=== PATIENT | male | born 1995 | race Two or more races ===

== ENCOUNTER 2024-11-08 13:22 | Outpatient (AMB) | payer OTHER, SELFPAY ==
--- NOTE | 2024-11-08 13:50 | MHC.PC.OV ---
Vital Signs 11/08/24 13:51 Height 5 ft 9.29 in Weight 141 lb BMI 20.6 BP 90/58 L Blood Pressure Location Lt brachial Position Sitting Pulse 94 Pulse Source Pulse Oximeter Pulse Oximetry (%) 98 Oxygen Delivery Method Room Air Intake Visit Reasons: establish care Human Services Professional Required: Yes Human Services Professional Language: Zambian Accompanied by: Self / Same As Patient Allergies No Known Allergies Allergy (Verified 11/08/24 14:01) Medication List - Last Reconciled 11/08/24 by Annie Spain PA-C tadalafil (Cialis) 5 mg PO DAILY Tobacco use date assessed: 11/08/24 Dental Screening Dental Screen Date: 11/08/24 Did you have a dental visit in the last 12 months?: Yes Did you have a dental problem in the last 6 months where you did not have access to dental care?: No Was dental information given to patient?: Patient has dentist HPI establish care HPI Details 29 year old male coming to the office for the 1st time. Patient presents today with his spouse who translates for the duration of this visit formal interpretation was declined. The patient is a 29-year-old male presenting with erectile dysfunction and urinary retention. He reports initial improvement with 10 mg tadalafil, which was adjusted to 5 mg due to adverse effects. Current concerns follow an online procurement of medication, producing undesirable effects. Symptoms of depression and anxiety were noted, intertwined with family-related stress and significant life changes. Positive depression and anxiety screenings were recorded. The patient experiences back pain potentially linked to past activities and physical strain, not yet addressed with imaging or physical therapy. Noteworthy is his history of bilateral hernia repair, raising concerns about potential complications. [facility] Surgical History H/O inguinal hernia repair Questionnaire PHQ-9 Over the last 2 weeks, how often have you been bothered by any of the following problems? 1. Little interest or pleasure in doing things: not at all 2. Feeling down, depressed, or hopeless: several days 3. Trouble falling or staying asleep, or sleeping too much: several days 4. Feeling tired or having little energy: nearly every day 5. Poor appetite or overeating: not at all 6. Feeling bad about yourself - or that you are a failure or have let yourself or your family down: several days 7. Trouble concentrating on things, such as reading the newspaper or watching television: several days 8. Moving or speaking so slowly that other people could have noticed. Or the opposite - being so fidgety or restless that you have been moving around a lot more than usual: not at all 9. Thoughts that you would be better off or of hurting yourself in some way: not at all Total score: 7 Depression Screening Interpretation: Positive Depression Screening Follow-up: New Medication prescribed Depression Screening Done: Yes 71213 - PHQ-9 Billing: Yes Source: Developed by Drs. Taurus Freeman, Malaika Betancourt, Mark Aguilera and colleagues, with an educational qiana from [employer]. Thrive Questionnaire Date Thrive assessed: 11/08/24 I am a: Patient What is your living situation today?: I have a steady place to live Within the past 12 months, did the food you bought not last and you didn't have the money to get more?: Never true Within the past 12 months, did you worry whether your food would run out before you got money to buy more?: Never true Do you have trouble paying for medicines?: No Do you have trouble getting transportation to medical appointments?: No Do you have trouble paying your heating and electricity bill?: No Do you have trouble taking care of your child, family member or friend?: No Do you have trouble with day-to-day activities such as bathing, preparing meals, shopping, managing finances, etc.?: No Are you currently unemployed and looking for a job?: Yes Are you interested in more education?: Yes Please select the resources that you would like help with: Job search/training and Education Currently or been in a relationship where the following occur: No concerns reported THRIVE Score: 0 AUDIT C Alcohol Use Questionnaire (AUDIT-C) 1. How often do you have a drink containing alcohol?: 2-3 times a week 2. How many drinks containing alcohol do you have on a typical day when you are drinking?: 1 or 2 3. How often do you have six or more drinks on one occasion?: Never Total Score: 3 TATYANA-7 AMB Questionnaire TATYANA-7 Date TATYANA - 7 assessed: 11/08/24 Feeling nervous, anxious, or on edge: 2 = More than half the days Not being able to stop or control worryin = Several days Worrying too much about different things: 1 = Several days Trouble relaxin = Several days Being so restless that it is hard to sit still: 0 = Not at all Becoming easily annoyed or irritable: 1 = Several days Feeling afraid as if something awful might happen: 0 = Not at all Total TATYANA-7 score (0-4 normal; 5-9 mild; 10-14 moderate; 15-21 severe): 6 Source: Developed by Drs. Taurus Freeman, Malaika Betancourt, Mark Aguilera and colleagues, with an educational qiana from [employer]. TATYANA-7 Assessment Billing TATYANA-7 Assessment Tool: TATYANA-7 Assessment 99717 Review of Systems Const Denies body aches, Denies chills, Denies fever(s), Denies headache(s) and Denies poor appetite Eyes Reports no additional complaints ENT Denies dizziness and Denies headache(s) Card Details: Chest pain with anxiety Denies chest pain, Denies lightheadedness and Denies dyspnea Resp Denies cough and Denies dyspnea GI Denies abdominal pain, Denies constipation, Denies diarrhea, Denies nausea and Denies vomiting Reports no additional complaints Musc Reports no additional complaints and Denies abnormal gait Skin/Breast Reports system reviewed and no additional complaints, except as documented Neuro Denies abnormal gait, Denies dizziness and Denies headache(s) Psych Reports no additional complaints Physical exam (Primary Care) BMI result Body Mass Index 20.6 PHQ-9: PHQ-9 Score PHQ-9: Total score 7 11/08/24 13:55 Depression Screening Interpretation: Positive Depression Screening Follow-up: New Medication prescribed Thrive Assessment: Date of Thrive Assessment Date Thrive assessed 11/05/24 11/08/24 13:55 Currently or been in a relationship where the following occur: No concerns reported Const General: cooperative, healthy appearing, comfortable and no acute distress Orientation/consciousness: patient oriented x3 HENMT Head: Yes normocephalic Ears: hearing grossly normal bilaterally General nose exam: Normal external nose present Eyes General: appearance normal, both eyes and all related structures Conjunctivae: conjunctivae normal Neck Neck: Yes full ROM and Yes no lymphadenopathy Resp Effort & Inspection: normal respiratory effort Auscultation: clear to auscultation bilaterally, no crackles, no rales, no rhonchi and no wheezes Cardio Rate: regular rate Rhythm: regular rhythm Skin General skin exam: no rashes or lesions noted Neuro General: patient oriented x3 Gait exam (Neuro): Normal gait present Extrem General: Yes normal to inspection, Yes full ROM and No edema Psych Affect: normal affect Attitude: cooperative Insight: Good insight present (Psych) Judgement: Good judgement present (Psych) Coding Level of Care Code New Pt Level 4 (15971) Diagnoses Post-void dribbling N39.43 Erectile dysfunction N52.9 Low back pain M54.50 Chest pain R07.9 Hypercholesterolemia E78.00 Depression F32.A Anxiety F41.9 Additional Codes TATYANA-7 Assessment Billing - TATYANA-7 Assessment Tool: TATYANA-7 Assessment 53820 ([id number]) PHQ-9 - 36007 - PHQ-9 Billing: Yes ([id number]) Assessment & Plan Assessment & Plan (1) Post-void dribbling: Code(s): N39.43 - Post-void dribbling Category: Medical Plan: Patient was given tadalafil 5 mg which has worked in the past. Refill was sent today and referral placed to Urology. Blood work including PSA and testosterone were ordered (2) Erectile dysfunction: Code(s): N52.9 - Male erectile dysfunction, unspecified Category: Medical Plan: Patient was given tadalafil 5 mg which has worked in the past. Refill was sent today and referral placed to Urology. Blood work including PSA and testosterone were ordered (3) Low back pain: Code(s): M54.50 - Low back pain, unspecified Category: Medical Plan: Patient complaining of chronic low back pain that has been ongoing for several years. Advised to use Tylenol and ibuprofen as needed for pain as well as heat and lidocaine patches. Thoracic and lumbar spine x-ray ordered (4) Chest pain: Code(s): R07.9 - Chest pain, unspecified Category: Medical Plan: Patient complaining of intermittent chest pains associated with anxiety. Denies any dyspnea on exertion or chest pain on exertion. Offered cardiac stress test which was declined today. Plan to start on SSRI continue to monitor symptoms. Reviewed with patient red flag symptoms and when to present for re-evaluation (5) Hypercholesterolemia: Code(s): E78.00 - Pure hypercholesterolemia, unspecified Category: Medical Plan: Previous history of hypercholesterolemia. Ordered for updated blood work. (6) Depression: Code(s): F32.A - Depression, unspecified Category: Medical Plan: Positive PHQ-9 test today. Plan to start on Zoloft and follow up in 2 months. (7) Anxiety: Code(s): F41.9 - Anxiety disorder, unspecified Category: Medical Plan: Positive tatyana 7 today plan to start on Zoloft 25 mg and follow up in 2 months. Plan For the patient's presenting issues of erectile dysfunction and urinary retention, I have continued tadalafil and recommended a urological evaluation. Additionally, sertraline was discussed for management of depression and anxiety, with careful monitoring for potential exacerbation of erectile dysfunction. His back pain, likely secondary to occupational hazards, prompts X-ray evaluation prior to physical therapy. Encouragement of his exercise regimen and advising dietary improvements for cholesterol management are suggested. He does not exhibit symptoms suggestive of cardiac ailment that necessitate immediate intervention. Family support and stress management strategies were recommended given the psychosocial burdens acknowledged during our visit. Patient was informed and verbally consented to the use of an ambient scribe for clinic note documentation during this visit. This note was constructed using voice recognition software. While every effort has been made to ensure accuracy and financial services auditor, still areas may have been included sometimes these areas may affect the content or meeting of the given symptoms. Total time spent caring for the patient today was 30 minutes. This includes time spent before the visit reviewing the chart, time spent during the visit, and time spent after the visit and documentation. Orders: Orders TSH reflex Free T4 Today Z00.00 - Encounter for general adult medical examination without abnormal findings Vitamin B12 and Folate Today Z00.00 - Encounter for general adult medical examination without abnormal findings Vitamin D 25-OH Total Today Z00.00 - Encounter for general adult medical examination without abnormal findings Comprehensive Met. Panel Today Z00.00 - Encounter for general adult medical examination without abnormal findings Complete Blood Count Auto Diff Today Z00.00 - Encounter for general adult medical examination without abnormal findings Testosterone, Free/Total Today N39.43 - Post-void dribbling, N52.9 - Male erectile dysfunction, unspecified XR lumbar spine 2-3V Today M54.50 - Low back pain, unspecified PSA, Ultra Sensitive Today N39.43 - Post-void dribbling, N52.9 - Male erectile dysfunction, unspecified Lipid Panel Today E78.00 - Pure hypercholesterolemia, unspecified XR thoracic spine 2V Today M54.50 - Low back pain, unspecified Referrals Urology Referral N39.43 - Post-void dribbling, N52.9 - Male erectile dysfunction, unspecified Medications: New tadalafil (Cialis) 5 mg PO DAILY 30 tabs 2RF sertraline 25 mg PO DAILY 30 tabs 0RF
[2024-11-08 13:51] VITALS: BP 90/58; PULSE 94; O2SAT 98; BMI 20.6
--- OUTSIDE RECORDS SUMMARY | 2024-11-08 15:25 | XMS_ITS | Clinical Summary ---
Author Organization [facility] [address] [facility] Address [address] [place] [address] Phone Care Team Providers Care Land Sales Agent Name Role Phone Veronica Srivastava MD Primary Care Provider [phone] Medications tadalafiL (CIALIS) 5 mg tablet Take 1 tablet (5 mg total) by mouth as needed. 07/10/2024 Active tadalafiL (CIALIS) 10 mg tablet Take 1 tablet (10 mg total) by mouth 1 (one) time each day if needed for erectile dysfunction. Start with 1 tablet po 30-45 mins prior to sexual activity. May increase to 20mg. Max 1 dose/day 12 tablet 3 08/29/2024 08/29/20 25 Active Encounters Date Type Department Care Team Description 08/28/2024 Telephone Adult Medicine - [place] [address] [place] [address] Veronica Srivastava MD referral from Last 3 Months Surgical History Surgery Date Site/Laterality Comments HERNIA REPAIR Bilateral PROCEDURE: HISTORICAL HERNIA REPAIR/ING; COMMENT: open procedure [facility] [place] Family History Medical History Relation Name Comments Hypertension Father Glaucoma Mother Relation Name Status Comments Father Mother Social History Tobacco Use Types Packs/Day Years Used Date Smoking Tobacco: Never Smokeless Tobacco: Never Alcohol Use Standard Drinks/Week Comments Yes 0 (1 standard drink = 0.6 oz pur e alcohol) Sex and Gender Information Value Date Recorded Sex Assigned at Not on file Legal Sex Male 8:20 PM EST Gender Identity Not on file Sexual Orientation Not on file Obstetrics History Last Filed Vital Signs Vital Sign Reading Time Taken Comments Blood Pressure 126/75 03/28/2024 1:35 PM EDT Pulse 86 03/28/2024 1:35 PM EDT Temperature - - Respiratory Rate - - Oxygen Saturation - - Inhaled Oxygen Concentration - - Weight 69.9 kg (154 lb) 03/28/2024 1:35 PM EDT Height 180.3 cm (5' 11 ) 03/28/2024 1:35 PM EDT Body Mass Index 21.48 03/28/2024 1:35 PM EDT Plan of Treatment Health Maintenance Due Date Last Done Comments Hepatitis B Vaccines (1 of 3 - 19+ 3-dose series) 2014 Depression Screening 10/05/2023 HIV Screening 10/05/2023 Hepatitis C Screening 10/05/2023 Social Influencers of Health Screening 10/05/2023 COVID-19 Vaccine (1 - 2023-2 5 season) 2024 Influenza Vaccine (#1) 2024 DTaP,Tdap,and Td Vaccines (2 - Td or Tdap) 11/13/2028 11/13/2018 Cholesterol Screening (Lipid Panel) 04/01/2029 04/01/2024 HIB Vaccines Aged Out No longer eligi ble based on patient's age to complete this topic HPV Vaccines Aged Out No longer eligi ble based on patient's age to complete this topic Hepatitis A Vaccines Aged Out No long er eligible based on patient's age to complete this topic IPV Vaccines Aged Out No longer eligi ble based on patient's age to complete this topic MMR Vaccines Aged Out No longer eligi ble based on patient's age to complete this topic Meningococcal ACWY Vaccine Aged Out N o longer eligible based on patient's age to complete this topic Meningococcal B Vacine Aged Out No lo nger eligible based on patient's age to complete this topic Pneumococcal Vaccine: Pediat rics (0 to 5 Years) and At-Risk Patients (6 to 64 Years) Aged Out No longer eligi ble based on patient's age to complete this topic RSV Immunization Patients Un juan j 20 months Aged Out No longer eligible b ased on patient's age to complete this topic Varicella Vaccines Aged Out No longer eligible based on patient's age to complete this topic Care Teams Land Sales Agent Relationship Specialty Start Date End Date Veronica Srivastava MD [address] [place] [id number] PCP - General 10/03/22
== END 2024-11-08 14:34 | disposition home or self-care (01) ==
DX: N39.43 Post-void dribbling (principal); N52.9 Male erectile dysfunction, unspecified; M54.50 Low back pain, unspecified; R07.9 Chest pain, unspecified; E78.00 Pure hypercholesterolemia, unspecified; F32.A Depression, unspecified; F41.9 Anxiety disorder, unspecified

== ENCOUNTER → 2024-11-08 13:22 | Outpatient (BNVA) | payer OTHER, SELFPAY | DX: N39.43 Post-void dribbling (principal); N52.9 Male erectile dysfunction, unspecified; M54.50 Low back pain, unspecified; E78.00 Pure hypercholesterolemia, unspecified; F32.A Depression, unspecified; F41.9 Anxiety disorder, unspecified | CPT/HCPCS: 96127 ==

== ENCOUNTER 2024-11-19 10:19 | Outpatient (REF) | payer OTHER, SELFPAY ==
--- NOTE | ~2024-11-19 | XR_ITS ---
EXAMINATION: XR THORACIC SPINE CLINICAL INFORMATION: M54.50 - Low back pain, unspecified COMPARISON: None available. TECHNIQUE: 3 views of the thoracic spine were obtained. FINDINGS: No acute cortical disruption or malalignment. No lytic or blastic lesions. Mild S-shaped curvature of the upper thoracic spine which could be positional. XR/XR thoracic spine 2V IMPRESSION: No acute fracture or listhesis. Negative exam. Electronically signed by: Akash Benedict MD 11/19/2024 03:05 PM EDT
--- NOTE | ~2024-11-19 | XR_ITS ---
EXAMINATION: XR LUMBOSACRAL SPINE CLINICAL INFORMATION: M54.50 - Low back pain, unspecified COMPARISON: None available. TECHNIQUE: Three views of the lumbosacral spine. FINDINGS: Nonrib T12. No acute cortical disruption or malalignment. No lytic or blastic lesions. XR/XR lumbar spine 2-3V IMPRESSION: No acute fracture or listhesis. Negative. Electronically signed by: Akash Benedict MD 11/19/2024 03:05 PM EDT
[2024-11-19 10:54] LABS: MANUAL DIFF FLAG NO
[2024-11-19 12:01] LABS: Basophils Absolute Auto 0.1 X10*3/uL (0.0-0.2); Basophils Percent Auto 0.9 % (0-2); Eosinophils Absolute Auto 0.2 X10*3/uL (0.0-0.4); Eosinophils Percent Auto 2.7 % (0-4); Hematocrit 46.6 % (42.0-52.0); Imm Gran Abs Auto 0.02 X10*3/uL (0.00-0.03); Imm Gran Pct Auto 0.4 % (0.0-0.4); Lymphocytes Absolute Auto 2.5 X10*3/uL (1.2-4.9); Mean Corpuscular HGB Conc 32.2 g/dl (31.0-36.0); Mean Platelet Volume 10.7 fL (9.4-12.4); Monocytes Absolute Auto 0.4 X10*3/uL (0.1-1.2); Monocytes Percent Auto 6.6 % (2-11); Neutrophils Absolute Auto 2.5 x10*3/uL (2.0-8.3); Neutrophils Percent Auto 44.4 % (45-73); Platelet Count 240 X10*3/uL (160-400); Red Blood Count 5.18 X10*6/uL (4.60-5.80); White Blood Count 5.6 X10*3/uL (4.8-10.8)
--- OUTSIDE RECORDS SUMMARY | 2024-11-19 12:16 | XMS_ITS | Clinical Summary ---
Author Organization [facility] [address] [facility] Address [address] [place] [address] Phone Care Team Providers Care Soup Mixer Name Role Phone Veronica Srivastava MD Primary Care Provider [phone] Medications tadalafiL (CIALIS) 5 mg tablet Take [...] Team Description 08/28/2024 Telephone Adult Medicine - [place] [address] [place] [address] Veronica Srivastava MD referral from [...] age to complete this topic Care Teams Soup Mixer Relationship Specialty Start Date End Date Veronica Srivastava MD PCP - General 10/03/22
[2024-11-19 13:07] LABS: Alanine Aminotransferase 40 U/L (0-40); Albumin Level 4.4 g/dL (3.5-5.0); Alkaline Phosphatase 45 U/L (39-117); Anion Gap 8 (12-20); Aspartate Amino Transferase 30 U/L (5-37); Bilirubin Total 0.5 mg/dL (0.0-1.0); Blood Urea Nitrogen 17 mg/dL (9-16); Calcium 9.3 mg/dL (8.4-10.2); Carbon Dioxide 32 mmol/L (22-29); Chloride 106 mmol/L (96-108); Cholesterol 177 mg/dL (<200); Estimated Glomerular Filt Rate > 60; Glucose Random 84 mg/dL (60-115); HDL Cholesterol 62 mg/dL (>40); LDL Cholesterol Calculated 107 mg/dL (<100); Potassium 4.8 mmol/L (3.3-5.1); Sodium 141 mmol/L (135-145); Triglycerides 42 mg/dL (<150)
[2024-11-19 13:09] LABS: TSH reflex Free T4 1.42 uIU/mL (0.32-4.0)
[2024-11-19 13:16] LABS: Folate 12.6 ng/mL (> or = 4.0); Vitamin B12 550 pg/mL (200-900)
[2024-11-23 21:09] LABS: PSA, Ultra Sensitive 0.96 ng/mL
[2024-11-28 15:23] LABS: Testosterone, Free 137.9 pg/mL (35.0-155.0); Testosterone, Total 836 ng/dL (250-1100)
== END 2024-11-19 10:20 | disposition home or self-care (01) ==
LOC: HO.LAB 10:19
DX: Z00.00 Encounter for general adult medical examination without abnormal findings (principal); M54.50 Low back pain, unspecified; E78.00 Pure hypercholesterolemia, unspecified; N39.43 Post-void dribbling; N52.9 Male erectile dysfunction, unspecified; Z12.5 Encounter for screening for malignant neoplasm of prostate
CPT/HCPCS: 36415; 72070; 72100; 80053; 80061; 82306; 82607; 82746; 84153; 84402; 84403; 84443; 85025

== ENCOUNTER → 2024-11-19 10:55 | Outpatient (BNV) | payer OTHER, SELFPAY | PROVIDERS: Visit Provider Radiology Diagnostic Radiology | DX: M54.50 Low back pain, unspecified (principal); M54.6 Pain in thoracic spine | CPT/HCPCS: 72070; 72100 ==

== ENCOUNTER 2025-01-08 13:10 | Outpatient (AMB) | payer OTHER, SELFPAY ==
--- NOTE | 2025-01-08 13:12 | MHC.OFFVIS ---
Intake Visit Reasons: erectile dysfunction/ post void dribbling Intake Note: New patient presents today for initial visit for erectile dysfunction Urology Medication:Tadalafil Blood Thinner:None Antibiotic Allergies:None PVR:0ml Allergies No Known Allergies Allergy (Verified 01/08/25 15:22) Medication List - Last Reconciled 01/08/25 by JOSÉ MIGUEL Warner sertraline 25 mg PO DAILY tadalafil (Cialis) 5 mg PO DAILY HPI Comments Details: Murphy is a very pleasant 29-year-old Brazilian-speaking male patient of Dr. Spain was accompanied by his significant other at today's office visit. He presents to the office today as a new patient for will ED as well as lower urinary tract symptoms he has been experiencing for many years. He reports following up with his PCP in discussing these urological issues he has been experiencing for many years. He reports having started low-dose Cialis 5 mg daily in discusses how helpful this has been in lower urinary tract symptoms as well as maintaining and obtaining his erections. He reports prior to initiation of 5 mg of Cialis daily he had been experiencing urinary hesitancy as well as feelings of incomplete bladder emptying however these have since significantly improved with daily dosing of tadalafil. We discussed at length potential causes of lower urinary tract symptoms as well as ED patient had been experiencing. We discussed further workup in risks and benefits of these interventions. He denies incontinence, nocturia, hematuria, dysuria, foul smelling urine, flank pain, fever, and or chills. In office urinalysis the patient today. PVR 0 mL. We discussed lifestyle modifications to assist with urinary issues as well as erectile dysfunction. He otherwise offers no other issues or concerns at this time. In review of patient's chart it appears labs are as follows: Testosterone 12/03 836 Free testosterone 12/03 137.9 History of Present Illness The patient is a 29-year-old male presenting with erectile dysfunction and lower urinary tract symptoms, which began approximately many years ago. The initial urinary symptoms included hesitancy and incomplete bladder emptying, followed by erectile dysfunction about two to three years later. The patient's urinary issues improved with the initiation of tadalafil. He experienced lifestyle-related stressors, including a familial stressor, such as a child with autism, resulting in depression for which he was recently started on sertraline. Plan The management plan includes maintaining tadalafil treatment due to its dual efficacy in ameliorating urinary symptoms and erectile dysfunction. Ultrasound imaging will be performed to ensure there are no underlying structural abnormalities contributing to symptoms. There was reassurance provided regarding cardiovascular concerns, with tadalafil treatment continuing, supported by the patient's positive response and lack of adverse effects. Patient was informed and verbally consented to the use of an ambient scribe for clinic note documentation during this visit. Discussion Notes I discussed with the patient the likely diagnosis of erectile dysfunction and bladder outlet obstruction, treated with tadalafil. We discussed management options, including continuation of tadalafil, which is beneficial for his symptoms, and avoiding alpha-blockers at this time due to potential side effects. I reassured the patient about cardiovascular concerns and elucidated the possible benefits and risks of continued tadalafil use, emphasizing moderation. The potential need for further diagnostic evaluation with imaging was also discussed. We mutually agreed on the management plan and will monitor his progress with tadalafil. I emphasized the importance of stress management and adequate sleep as part of his overall health strategy. [facility] Surgical History H/O inguinal hernia repair Social History Housing: House Patient Tobacco Use Status: Never used Tobacco e-Cigarette/Vaping Use: Never Used service: No Current occupational status: unemployed Cognitive needs: No Hearing needs: No Vision needs: No Review of Systems Const All systems reviewed & are unremarkable except as noted in HPI and below Physical Exam Const General: cooperative, healthy appearing, comfortable, no acute distress, well developed, alert and awake Nutritional Appearance: average body habitus Orientation/consciousness: patient oriented x3 Limitations: no limitations HEENT Head: Yes normal to inspection, Yes normocephalic and Yes atraumatic Ears: hearing grossly normal bilaterally Eyes General: appearance normal, both eyes and all related structures Neck Neck: Yes normal visual inspection and Yes trachea midline Chest Chest palpation & inspection: normal inspection of the chest Resp Effort & Inspection: normal respiratory effort and able to speak in complete sentences Cardio Rate: regular rate GI Inspection: Yes normal to inspection General: Yes no CVA tenderness Back/Spine/Pelvis Back: no CVA tenderness Skin General skin exam: no rashes or lesions noted Neuro General: patient oriented x3 Extrem General: Yes normal to inspection Psych Appearance: grossly normal and well kempt Mental Status: mental status grossly normal Speech and movement: Normal speech and movement present and Clear speech present Affect: normal affect Attitude: cooperative Thought process: Normal thought process present Thought content: Normal thought content present Insight: Fair insight present (Psych) Judgement: Fair judgement present (Psych) Results AMB Urinalysis, Automated UA Leukoctes 0 Jun/uL Last Edit by Pari Harris on 01/08/25 13:45 UA Nitrite Negative Last Edit by Pari Harris on 01/08/25 13:45 UA Urobilinogen 0.2 mg/dL Last Edit by Pari Harris on 01/08/25 13:45 UA Protein 0 mg/dL Last Edit by Pari Harris on 01/08/25 13:45 UA pH 6.0 Last Edit by Prai Harris on 01/08/25 13:45 UA Blood 10 Cachorro/uL Last Edit by Pari Harris on 01/08/25 13:45 UA Specific Belton 1.020 Last Edit by Pari Harris on 01/08/25 13:45 UA Ketone Negative Last Edit by Pari Harris on 01/08/25 13:45 UA Bilirubin 0 mg/dL Last Edit by Pari Harris on 01/08/25 13:45 UA Glucose 0 mg/dL Last Edit by Pari Harris on 01/08/25 13:45 Results Reviewed Results Reviewed: Laboratory Last Values Urine pH (Auto) 6.0 01/08/25 08:14 Specific [place] (Auto) 1.020 01/08/25 08:14 Urine Protein (Auto) 0 mg/dL 01/08/25 08:14 Glucose (UA)(Auto) 0 mg/dL 01/08/25 08:14 Urine Ketones (Auto) Negative 01/08/25 08:14 Urine Blood (Auto) 10 Cachorro/uL 01/08/25 08:14 Urine Nitrite (Auto) Negative 01/08/25 08:14 Urine Bilirubin (Auto) 0 mg/dL 01/08/25 08:14 Urine Urobilinogen (Auto) 0.2 mg/dL 01/08/25 08:14 Leukocyte Esterase (Auto) 0 Jun/uL 01/08/25 08:14 Assessment & Plan Assessment & Plan (1) History of urinary hesitancy: Code(s): Z87.898 - Personal history of other specified conditions Category: Medical (2) Feeling of incomplete bladder emptying: Code(s): R39.14 - Feeling of incomplete bladder emptying Category: Medical Plan In office urinalysis results reviewed with the patient today; as noted above. PVR 0 mL. We discussed potential causes of ED as well as lower urinary tract symptoms patient was experiencing as well as further treatment options and risks and benefits of these treatment options Continue Cialis as discussed and prescribed. Will obtain retroperitoneal ultrasound for further assessment evaluation. We discussed potential near future in office cystoscopy for further assessment evaluation. We discussed lifestyle modifications to assist with lower urinary tract symptoms as well as ED and overall health and well-being. Follow-up in 3 months with imaging to be completed prior; or sooner with any issues, concerns, and or questions. Orders: Orders AMB Urinalysis Automated Today Z13.9 - Encounter for screening, unspecified AMB Post Void Residual by ultrasound Today N39.43 - Post-void dribbling US retroperitoneal comp Today R39.14 - Feeling of incomplete bladder emptying, Z87.898 - Personal history of other specified conditions Patient Instructions: The patient had an opportunity to ask questions regarding the treatment plan. All questions were answered. Physical exam, labs, and imaging were discussed and reviewed in detail. As well as risks, benefits, and discussion of treatment choices. No major barriers to understanding were identified. The patient expressed understanding and agreement with the above treatment plan. The patient was made aware they should contact our office by phone for worsening of their current condition, the appearance of new symptoms, or with any questions or concerns. Compliance is encouraged with any medications and follow up testing that is ordered. It is a privilege to be allowed the opportunity to participate in? your urological care.? Again, if you have any questions or concerns If you have any questions or concerns please do not hesitate to contact me. The office is [phone]. This note is constructed using voice recognition software. While every effort has been made to ensure accuracy peanut butter maker errors may have been included. Yours sincerely, JOSÉ MIGUEL Warner Coding Level of Care Code New Pt Level 4 (05463) Diagnoses History of urinary hesitancy Z87.898 Feeling of incomplete bladder emptying R39.14 Time Spent (min) 40
--- OUTSIDE RECORDS SUMMARY | 2025-01-08 14:28 | XMS_ITS | Clinical Summary ---
Author Organization [facility] [address] [facility] [address] [facility] [address] [facility] [address] Address [address] [place] [address] Phone Care Team Providers Care Transition Manager Name Role Phone Veronica Srivastava MD Primary Care Provider [phone] Medications tadalafiL (CIALIS) 5 mg tablet Take [...] 12 tablet 3 08/29/2024 08/29/20 25 Active Surgical History Surgery Date Site/Laterality Comments HERNIA REPAIR Bilateral PROCEDURE: HISTORICAL HERNIA REPAIR/ING; COMMENT: open procedure [facility] [place] Family History Medical History Relation Name [...] - 2023-2 5 season) 2024 Influenza Vaccine (Season Ended) 2025 DTaP,Tdap,and Td Vaccines (2 - Td or [...] age to complete this topic Meningococcal B Vaccine Aged Out No l onger eligible based on patient's age to complete [...] age to complete this topic Care Teams Transition Manager Relationship Specialty Start Date End Date Veornica Srivastava MD PCP - General 10/03/22
== END 2025-01-08 14:04 | disposition home or self-care (01) ==
LOC: HO.HUSH 13:11
PROVIDERS: Visit Provider Nurse Practitioner Family
DX: Z87.898 Personal history of other specified conditions (principal); R39.14 Feeling of incomplete bladder emptying; Z13.9 Encounter for screening, unspecified
CPT/HCPCS: 99204

== ENCOUNTER → 2025-01-08 13:10 | Outpatient (BNVA) | payer OTHER, SELFPAY | PROVIDERS: Visit Provider Nurse Practitioner Family | DX: R39.14 Feeling of incomplete bladder emptying (principal); N52.9 Male erectile dysfunction, unspecified; Z87.898 Personal history of other specified conditions; Z79.899 Other long term (current) drug therapy | CPT/HCPCS: 81003 ==

== ENCOUNTER 2025-01-15 11:08 | Outpatient (AMB) | payer OTHER, SELFPAY ==
[2025-01-15 11:18] VITALS: BP 130/68; PULSE 75; TEMP 36.2; O2SAT 97; BMI 22.0
--- NOTE | 2025-01-15 11:18 | MHC.PC.OV ---
Vital Signs 01/15/25 11:18 Height 5 ft 9.29 in Weight 150 lb BMI 22.0 BP 130/68 Blood Pressure Location Lt brachial Position Sitting Pulse 75 Pulse Source Pulse Oximeter Temp 97.1 F Temp Source Temporal Artery Scan Pulse Oximetry (%) 97 Oxygen Delivery Method Room Air Intake Visit Reasons: f/u anxiety and blood work Intake Note: Patient is here to follow up on Anxiety and blood work. Grain Sampler Required: Yes Grain Sampler Language: Contracting Officer Name: Shonna (spouse) Information Interpreted: non-clinical & clinical (pt decline cyber incident responder service, prefer spouse to translate) Cytology Manager: Present Accompanied by: Spouse Allergies No Known Allergies Allergy (Verified 01/15/25 11:25) Medication List - Last Reconciled 01/15/25 by Annie Spain PA-C sertraline 25 mg PO DAILY tadalafil (Cialis) 5 mg PO DAILY Tobacco use date assessed: 01/15/25 Dental Screening Dental Screen Date: 11/08/24 HPI f/u anxiety and blood work HPI Details 29-year-old male with a past medical history of erectile dysfunction, hypercholesterolemia, anxiety, depression last seen 10/2024 coming in for follow up.?Patient was seen by Urology 01/08/2025 continue on Cialis plan to obtain ultrasound and cystoscopy for future assessment. Presenting with complaints of anxiety, erectile dysfunction, and musculoskeletal pain. His anxiety has been an ongoing issue for which Sertraline was prescribed. Three weeks ago, while in the [facility] [place], he ceased taking Sertraline due to increased alcohol consumption. Recently, he feels chest pressure related to anxiety, without resuming Sertraline however chest pressure has been reduced. The patient reports success with 5 mg daily Cialis for erectile dysfunction, having reduced from 10 mg due to headaches. He fears that Sertraline may impair erectile function. His knee pain worsens with flexion or pressure but without specific injury, exacerbated while active, including weight training. [facility], [facility] Surgical History H/O inguinal hernia repair Family History Other Mental health disorder Substance use disorder Social History Housing: House Patient Tobacco Use Status: Never used Tobacco e-Cigarette/Vaping Use: Never Used Second Hand Smoke Exposure: No service: No Current occupational status: unemployed Cognitive needs: No Hearing needs: No Vision needs: No Questionnaire Thrive Questionnaire Date Thrive assessed: 11/05/24 I am a: Patient What is your living situation today?: I have a steady place to live Within the past 12 months, did the food you bought not last and you didn't have the money to get more?: Never true Within the past 12 months, did you worry whether your food would run out before you got money to buy more?: Never true Do you have trouble paying for medicines?: No Do you have trouble getting transportation to medical appointments?: No Do you have trouble paying your heating and electricity bill?: No Do you have trouble taking care of your child, family member or friend?: No Do you have trouble with day-to-day activities such as bathing, preparing meals, shopping, managing finances, etc.?: No Are you currently unemployed and looking for a job?: Yes Are you interested in more education?: Yes Currently or been in a relationship where the following occur: No concerns reported THRIVE Score: 0 TATYANA-7 AMB Questionnaire TATYANA-7 Date TTAYANA - 7 assessed: 11/08/24 Source: Developed by Drs. Taurus Freeman, Malaika Betancourt, Mark Aguilera and colleagues, with an educational qiana from [employer]. Review of Systems Const Denies body aches, Denies chills, Denies fever(s), Denies headache(s) and Denies poor appetite Eyes Reports no additional complaints ENT Denies dysphagia, Denies dizziness, Denies headache(s) and Denies odynophagia Card Denies chest pain, Denies syncope, Denies edema, Denies irregular heart rhythm, Denies lightheadedness and Denies dyspnea Resp Denies cough and Denies dyspnea GI Denies abdominal pain, Denies constipation, Denies dysphagia, Denies diarrhea, Denies nausea, Denies odynophagia and Denies vomiting Reports no additional complaints Musc Reports as per HPI and Denies abnormal gait Neuro Denies abnormal gait, Denies dizziness, Denies syncope and Denies headache(s) Psych Reports no additional complaints Physical exam (Primary Care) Vital Signs: Last Vital Signs Temp 97.1 F 01/15/25 11:18 Pulse 75 01/15/25 11:18 BP 130/68 01/15/25 11:18 Pulse Ox 97 01/15/25 11:18 Oxygen Delivery Method Room Air 01/15/25 11:18 BMI result Body Mass Index 22.0 Tobacco/Smoking Status: Tobacco use Status Tobacco use date assessed 01/15/25 01/15/25 11:23 Patient Tobacco Use Status Never used Tobacco 01/15/25 11:23 e-Cigarette/Vaping Use Never Used 01/15/25 11:23 Thrive Assessment: Date of Thrive Assessment Date Thrive assessed 11/05/24 01/15/25 11:23 Currently or been in a relationship where the following occur: No concerns reported Const General: cooperative, healthy appearing, comfortable and no acute distress Orientation/consciousness: patient oriented x3 HENMT Head: Yes normocephalic Ears: hearing grossly normal bilaterally General nose exam: Normal external nose present Eyes General: appearance normal, both eyes and all related structures Conjunctivae: conjunctivae normal Neck Neck: Yes full ROM and Yes no lymphadenopathy Resp Effort & Inspection: normal respiratory effort Auscultation: clear to auscultation bilaterally, no crackles, no rales, no rhonchi and no wheezes Cardio Rate: regular rate Rhythm: regular rhythm Skin General skin exam: no rashes or lesions noted Neuro General: patient oriented x3 Gait exam (Neuro): Normal gait present Extrem Other: left knee pain with flexion. strength and sensation intact in ivonne LE. tenderness to palpation over posterior-lateral aspect of the left knee General: Yes normal to inspection, Yes full ROM and No edema Psych Affect: normal affect Attitude: cooperative Insight: Good insight present (Psych) Judgement: Good judgement present (Psych) Coding Level of Care Code Est Pt Level 3 (28631) Diagnoses Post-void dribbling N39.43 Erectile dysfunction N52.9 Low back pain M54.50 Hypercholesterolemia E78.00 Depression F32.A Anxiety F41.9 Left knee pain M25.562 Assessment & Plan Assessment & Plan (1) Post-void dribbling: Code(s): N39.43 - Post-void dribbling Category: Medical Plan: Patient was given tadalafil 5 mg which has worked in the past. Patient was seen by Urology plan to obtain imaging continue on current medication regimen and follow up with Urology. (2) Erectile dysfunction: Code(s): N52.9 - Male erectile dysfunction, unspecified Category: Medical Plan: See above (3) Low back pain: Code(s): M54.50 - Low back pain, unspecified Category: Medical Plan: Negative x-rays of the thoracic and lumbar spine. Plan to continue with conservative management using heat, ibuprofen, Tylenol as needed. Consider referral to physical therapy (4) Hypercholesterolemia: Code(s): E78.00 - Pure hypercholesterolemia, unspecified Category: Medical Plan: Avoid foods that are high in cholesterol such as red meat, fried foods, eggs and baked goods. Triglyceride goal of less than 150 and LDL goal of less than 130. Discussed dietary and lifestyle modification. (5) Depression: Code(s): F32.A - Depression, unspecified Category: Medical Plan: Patient was started on Zoloft at his last visit which he found worsened his erectile dysfunction. Patient feels well without the medication at this time and agrees to reach out if he would like to try additional medication. (6) Anxiety: Code(s): F41.9 - Anxiety disorder, unspecified Category: Medical Plan: See above (7) Left knee pain: Code(s): M25.562 - Pain in left knee Category: Medical Plan: Based on patient's symptoms and history likely muscular or tendon related. The knee-related musculoskeletal discomfort will be managed through lifestyle modifications focusing on appropriate exercise and conservative treatment like heating pads, with physical therapy considered if pain persists. Recommend gentle stretching, heating, massage and Tylenol and ibuprofen as needed. Plan This note was constructed using voice recognition software. While every effort has been made to ensure accuracy and international accounting manager, still areas may have been included sometimes these areas may affect the content or meeting of the given symptoms. Total time spent caring for the patient today was 20 minutes. This includes time spent before the visit reviewing the chart, time spent during the visit, and time spent after the visit and documentation. Patient was informed and verbally consented to the use of an ambient scribe for clinic note documentation during this visit. Medications: Refilled tadalafil (Cialis) 5 mg PO DAILY 90 tabs 2RF On Hold sertraline Hold Comment: Doctor's Order 25 mg PO DAILY 30 tabs 2RF
--- OUTSIDE RECORDS SUMMARY | 2025-01-15 12:36 | XMS_ITS | Clinical Summary ---
Author Organization [facility] [address] [facility] [address] Address [address] [place] [address] Phone Care Team Providers Care Flavor Maker Name Role Phone Veronica Srivastava MD Primary Care Provider [phone] Medications tadalafiL (CIALIS) 5 mg tablet Take [...] PROCEDURE: HISTORICAL HERNIA REPAIR/ING; COMMENT: open procedure [facility] [place] Family History Medical History Relation Name [...] age to complete this topic Care Teams Flavor Maker Relationship Specialty Start Date End Date Veronica Srivastava MD PCP - General 10/03/22
== END 2025-01-15 12:38 | disposition home or self-care (01) ==
LOC: HO.HMCH 11:08
DX: N39.43 Post-void dribbling (principal); N52.9 Male erectile dysfunction, unspecified; M54.50 Low back pain, unspecified; E78.00 Pure hypercholesterolemia, unspecified; F32.A Depression, unspecified; F41.9 Anxiety disorder, unspecified; M25.562 Pain in left knee

== ENCOUNTER → 2025-01-15 11:08 | Outpatient (BNVA) | payer OTHER, SELFPAY | DX: Z13.89 Encounter for screening for other disorder (principal) ==

== ENCOUNTER 2025-03-24 11:35 | Outpatient (REF) | payer OTHER, SELFPAY ==
--- NOTE | ~2025-03-24 | US_ITS ---
CLINICAL HISTORY: R39.14 - Feeling of incomplete bladder emptying US kidneys and bladder Comparison: None provided Findings: Right kidney 10.9 cm length. No significant focal abnormality. Left kidney 11.2 cm length. No significant focal abnormality. No bilateral hydronephrosis. Normal bilateral renal echogenicity. The urinary bladder is unremarkable. Prevoid volume 328 mL. Post void volume 26 mL. Bilateral ureteral jets visualized. Impression: No significant abnormalities. Ultrasound prostate Comparison: None provided Findings: Prostate 4.2 x 2.5 x 4.3 cm. Prostate heterogeneous with small calcification. Small cystic area also noted. Prostate volume 23 mL, this is normal. Impression: Heterogeneous prostate otherwise unremarkable This document has been electronically signed by: Charlie Meier MD on 03/24/2025 19:41:53
--- OUTSIDE RECORDS SUMMARY | 2025-03-24 12:44 | XMS_ITS | Clinical Summary ---
Author Organization [facility] [address] [facility] [address] Address [address] [place] [address] Phone Care Team Providers Care Testing And Regulating Chief Name Role Phone Veronica Srivastava MD Primary Care Provider [phone] Medications tadalafiL (CIALIS) 5 mg tablet Take [...] PROCEDURE: HISTORICAL HERNIA REPAIR/ING; COMMENT: open procedure [facility] [place] Family History Medical History Relation Name [...] 2023-2 5 season) 2024 Influenza Vaccine (#1) 2025 DTaP,Tdap,and Td Vaccines (2 - Td [...] 5 Years) and At-Risk Patients (6 to 49 Years) Aged Out No longer eligi ble based on patient's age to complete this topic RSV Immunization Patients Un juan j 20 months Aged Out No longer eligible b ased on patient's age to complete this topic Varicella Vaccines Aged Out No longer eligible based on patient's age to complete this topic Care Teams Testing And Regulating Chief Relationship Specialty Start Date End Date Veronica Srivastava MD PCP - General 10/03/22
== END 2025-03-24 11:36 | disposition home or self-care (01) ==
LOC: HO.US 11:35
PROVIDERS: Visit Provider Nurse Practitioner Family
DX: R39.14 Feeling of incomplete bladder emptying (principal); Z87.898 Personal history of other specified conditions
CPT/HCPCS: 76770

== ENCOUNTER → 2025-03-24 11:37 | Outpatient (BNV) | payer OTHER, SELFPAY | PROVIDERS: Visit Provider Radiology Diagnostic Radiology | DX: N40.0 Benign prostatic hyperplasia without lower urinary tract symptoms (principal) | CPT/HCPCS: 76770 ==

== ENCOUNTER 2025-04-09 13:39 | Outpatient (AMB) | payer OTHER, SELFPAY ==
--- NOTE | 2025-04-09 13:45 | MHC.OFFVIS ---
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 Instructions: Doctor's Order tadalafil (Cialis) 5 mg PO DAILY HPI Comments Details: Murphy is a very pleasant 29-year-old Hungarian-speaking male patient of Dr. [place] was accompanied by his significant other at today's office visit. He presents to the office today for follow-up of his ED and lower urinary tract symptoms. In discussion with the patient today reports to be doing and feeling well. He reports noting improvement in ED as well as lower urinary tract symptoms with daily dosing of tadalafil 5 mg daily. Recent retroperitoneal ultrasound results were reviewed 04/04 bilateral kidneys with no hydronephrosis or nephrolithiasis. The urinary bladder is unremarkable. Prostate is heterogeneous with small calcifications. Prostate volume of 23 mL. He does report feelings of incomplete bladder emptying and bladder pressure have improved with daily dosing of tadalafil however does note whenever he does not take the medications symptoms are present. We discussed at length potential causes of lower urinary tract symptoms as well as ED patient had been experiencing. He denies incontinence, nocturia, hematuria, dysuria, foul smelling urine, flank pain, fever, and or chills. Unable to obtain urine for urinalysis today as patient unable to void however PVR 0 mL. We discussed lifestyle modifications to assist with urinary issues as well as erectile dysfunction. 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 He otherwise offers no other issues or concerns at this time. In review of patient's chart it appears labs are as follows: Testosterone 12/03 836 Free testosterone 12/03 137.9 PFSH Surgical History H/O inguinal hernia repair Family History Other Mental health disorder Substance use disorder Social History Housing: House Patient Tobacco Use Status: Never used Tobacco e-Cigarette/Vaping Use: Never Used Second Hand Smoke Exposure: No service: No Current occupational status: unemployed Cognitive needs: No Hearing needs: No Vision needs: No Review of Systems Const All systems reviewed & are unremarkable except as noted in HPI and below Physical Exam Const General: cooperative, healthy appearing, comfortable, no acute distress, well developed, alert and awake Nutritional Appearance: average body habitus Orientation/consciousness: patient oriented x3 Limitations: no limitations HEENT Head: Yes normal to inspection, Yes normocephalic and Yes atraumatic Ears: hearing grossly normal bilaterally Eyes General: appearance normal, both eyes and all related structures Neck Neck: Yes normal visual inspection and Yes trachea midline Chest Chest palpation & inspection: normal inspection of the chest Resp Effort & Inspection: normal respiratory effort and able to speak in complete sentences Cardio Rate: regular rate GI Inspection: Yes normal to inspection General: Yes no CVA tenderness Back/Spine/Pelvis Back: no CVA tenderness Skin General skin exam: no rashes or lesions noted Neuro General: patient oriented x3 Extrem General: Yes normal to inspection Psych Appearance: grossly normal and well kempt Mental Status: mental status grossly normal Speech and movement: Normal speech and movement present and Clear speech present Affect: normal affect Attitude: cooperative Thought process: Normal thought process present Thought content: Normal thought content present Insight: Fair insight present (Psych) Judgement: Fair judgement present (Psych) Office Procedures Post Void Residual Post Residual Void Post Void Residual (PVR): 0 [id number]-[id number] Void Residual by ultrasound Results AMB Urinalysis, Automated UA Leukoctes 0 Jun/uL Last Edit by POLI Singleton on 04/09/25 14:08 UA Nitrite Negative Last Edit by POLI Singleton on 04/09/25 14:08 UA Urobilinogen 0.2 mg/dL Last Edit by POLI Singleton on 04/09/25 14:08 UA Protein 0 mg/dL Last Edit by POLI Singleton on 04/09/25 14:08 UA pH 6.0 Last Edit by POLI Singleton on 04/09/25 14:08 UA Blood 10 [place]/uL Last Edit by POLI Singleton on 04/09/25 14:08 UA Specific [place] 1.015 Last Edit by POLI Singleton on 04/09/25 14:08 UA Ketone Negative Last Edit by POLI Singleton on 04/09/25 14:08 UA Bilirubin 0 mg/dL Last Edit by POLI Singleton on 04/09/25 14:08 UA Glucose 0 mg/dL Last Edit by POLI Singleton on 04/09/25 14:08 Results Reviewed Results Reviewed: Date of Service: 03/24/25 Procedure(s): US retroperitoneal comp Findings: Right kidney 10.9 cm length. No significant focal abnormality. Left kidney 11.2 cm length. No significant focal abnormality. No bilateral hydronephrosis. Normal bilateral renal echogenicity. The urinary bladder is unremarkable. Prevoid volume 328 mL. Post void volume 26 mL. Bilateral ureteral jets visualized. Impression: No significant abnormalities. Ultrasound prostate Comparison: None provided Findings: Prostate 4.2 x 2.5 x 4.3 cm. Prostate heterogeneous with small calcification. Small cystic area also noted. Prostate volume 23 mL, this is normal. Impression: Heterogeneous prostate otherwise unremarkable Assessment & Plan Assessment & Plan (1) Feeling of incomplete bladder emptying: Code(s): R39.14 - Feeling of incomplete bladder emptying Category: Medical (2) History of urinary hesitancy: Code(s): Z87.898 - Personal history of other specified conditions Category: Medical (3) Erectile dysfunction: Code(s): N52.9 - Male erectile dysfunction, unspecified Category: Medical (4) Post-void dribbling: Code(s): N39.43 - Post-void dribbling Category: Medical Plan Unable to obtain urine for urinalysis as patient unable to void however PVR 0 mL. Recent retroperitoneal ultrasound results reviewed with the patient today; as noted above. We did discussed potential causes of ED as well as lower urinary tract symptoms he experiences. Continue Cialis 5 mg daily as discussed and prescribed. We discussed pelvic floor therapy as well as pelvic floor exercises. All the patient's to be answered. Follow-up next available for vasectomy evaluation; or sooner with any issues, concerns, and or questions. Orders: Orders AMB Urinalysis Automated Today Z13.9 - Encounter for screening, unspecified Patient Instructions: The patient had an opportunity to ask questions regarding the treatment plan. All questions were answered. Physical exam, labs, and imaging were discussed and reviewed in detail. As well as risks, benefits, and discussion of treatment choices. No major barriers to understanding were identified. The patient expressed understanding and agreement with the above treatment plan. The patient was made aware they should contact our office by phone for worsening of their current condition, the appearance of new symptoms, or with any questions or concerns. Compliance is encouraged with any medications and follow up testing that is ordered. It is a privilege to be allowed the opportunity to participate in? your urological care.? Again, if you have any questions or concerns If you have any questions or concerns please do not hesitate to contact me. The office is [phone]. This note is constructed using voice recognition software. While every effort has been made to ensure accuracy automotive painter helper errors may have been included. Yours sincerely, JOSÉ MIGUEL Warner Coding Level of Care Code Est Pt Level 3 (32142) Diagnoses Feeling of incomplete bladder emptying R39.14 History of urinary hesitancy Z87.898 Erectile dysfunction N52.9 Post-void dribbling N39.43 CPT Codes Post Residual Void - PVR CPT Code: 69228-Gble Void Residual by ultrasound ([id number])
--- OUTSIDE RECORDS SUMMARY | 2025-04-09 14:17 | XMS_ITS | Clinical Summary ---
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 Name Role Phone Veronica Srivastava MD Primary Care Provider [phone] Medications tadalafiL (CIALIS) 5 mg tablet Take [...] PROCEDURE: HISTORICAL HERNIA REPAIR/ING; COMMENT: open procedure [facility] Family History Medical History Relation [...] of 3 - 19+ 3-dose series) 2014 HIV Screening 10/05/2023 Hepatitis C Screening 10/05/2023 Social Influencers of Health Screening 10/05/2023 COVID-19 Vaccine (1 - 2023-2 5 season) 2024 Depression Screening 09/11/2024 Influenza Vaccine (#1) 2025 DTaP,Tdap,and Td Vaccines [...] age to complete this topic Care Teams Oil Burner Installer Relationship Specialty Start Date End Date Veronica Srivastava MD PCP - General 10/03/22
== END 2025-04-09 14:23 | disposition home or self-care (01) ==
PROVIDERS: Visit Provider Nurse Practitioner Family
DX: R39.14 Feeling of incomplete bladder emptying (principal); Z87.898 Personal history of other specified conditions; N52.9 Male erectile dysfunction, unspecified; N39.43 Post-void dribbling; Z13.9 Encounter for screening, unspecified
CPT/HCPCS: 99213

== ENCOUNTER → 2025-04-09 13:39 | Outpatient (BNVA) | payer OTHER, SELFPAY | PROVIDERS: Visit Provider Nurse Practitioner Family | DX: R39.14 Feeling of incomplete bladder emptying (principal) | CPT/HCPCS: 51798; 81003 ==